=== PATIENT | male | born 1980 | race Caucasian/White ===

== ENCOUNTER → 2022-04-29 12:04 | Outpatient (CLI) | payer OTHER, SELFPAY ==
[2022-04-29 12:22] LABS: Semen Sperm Prescence Post-Vas Absent (ABSENT)
== END ==
PROVIDERS: PCP Family Medicine; Referring Provider Specialist; Visit Provider Specialist
DX: Z98.52 Vasectomy status (principal)
CPT/HCPCS: 89321

== ENCOUNTER 2024-08-28 07:54 | Day surgery (SDC) | payer OTHER, SELFPAY ==
[2024-08-28 08:10] VITALS: BP 105/69; PULSE 77; RESP 15; TEMP 36.4; O2SAT 97
[2024-08-28] MEDS: LACTATED RINGERS 1,000 ML 42 ML IV (08:20)
--- NOTE | 2024-08-28 08:59 | P.HP_ITS ---
History of Present Illness History of Present Illness Date Patient Seen: 08/28/24 Chief complaint: SDC Narrative: Family history of colon cancer in an uncle and colon polyps in father and another uncle need for 1st colorectal cancer screening PENDING SALE TO [facility] Medical History (Updated 11/06/23 @ 16:36 by Reggie Gonzalez MD) Encounter for preventative adult health care examination Family history of colon cancer Surgical History Hx of circumcision Family History Father Cancer Social History marital status: number of children: 3 Smoking Status: Never smoker alcohol intake: current caffeine: Yes Type(s) of exercise: independent ambulation and regular exercise duration: 45-60 minutes/day Meds Home Medications and Allergies Home Medications ?Medication ?Instructions ?Recorded ?Confirmed ?Type epinephrine 0.3 mg/0.3 mL 0.3 mg IM ONCE 09/14/2011/20 History injection, auto-injector epinephrine 0.3 mg/0.3 mL 0.3 mg (0.3 mL) IM Q5-15M VT N 09/15/20 11/06/23 Rx injection, auto-injector (EpiPen hypersensitivity reac tion #2 ea 2-Samir) Allergies Allergy/AdvReac Type Severity Reaction Status Date / Time bee venom protein (honey bee) Allergy Intermediate HIVES Verified 08/28/24 08:09 Exam Vital Signs (past 8 hours): - 08/28/24 08:10 Temperature 97.5 F L Pulse Rate 77 Respiratory Rate 15 Blood Pressure 105/69 Pulse Oximetry 97 Oxygen Delivery Method Room Air Oxygen Delivery Method Room Air Narrative Exam Narrative: Oropharynx free of lesions Assessment & Plan Assessment & Plan narrative: Family history of colon cancer and polyps need for colorectal cancer screening. Risks, benefits, alternatives have been explained. Time-Based Coding :: [TOTAL MINUTES] spent with patient and on the chart (including review of chart, obtaining history, exam, reviewing outside data, placing orders, documenting exam and treatment plan, and counseling patient) on [DATE]. PROFEE R Developer Document charge(s): No
--- NOTE | 2024-08-28 09:00 | PM.OP.COLON ---
Operative Date/Time/Diagnoses Date of procedure: 08/28/24 Time of procedure: 09:19 Pre-op diagnosis: See indication and findings Post-op diagnosis: same Procedure & Clinicians Study performed: Colonoscopy Same procedure(s) as scheduled: Yes Surgeon: Jack Daley Anesthesia Type: Other Procedure Notes Procedure in detail: After informed consent was obtained the patient was placed in left lateral decubitus position. The video colonoscope was introduced the rectum slowly advanced cecum. Preparation was good. On slow withdrawal mucosa was carefully examined. The scope was removed. The patient tolerated procedure well. Blood loss none Complications none Sedation mac Findings 1. Normal colonoscopy to cecum Patient should follow-up colonoscopy in 5 years
[2024-08-28 09:23] VITALS: BP 93/53; PULSE 63; RESP 17; TEMP 36.2; O2SAT 99
[2024-08-28 09:28] VITALS: BP 97/69; PULSE 60; RESP 20; O2SAT 100
[2024-08-28 09:36] VITALS: BP 95/68; PULSE 62; RESP 17; TEMP 36.4; O2SAT 98
== END 2024-08-28 09:42 | disposition home or self-care (01) ==
PROVIDERS: PCP Family Medicine; Referring Provider Internal Medicine Gastroenterology; Visit Provider Internal Medicine Gastroenterology
PROC: 0DJD8ZZ Inspection of Lower Intestinal Tract, Via Natural or Artificial Opening Endoscopic (ICD-10-PCS; CPT 45378; principal; 2024-08-28 09:00)
DX: Z12.11 Encounter for screening for malignant neoplasm of colon (principal); Z80.0 Family history of malignant neoplasm of digestive organs; Z83.719 Family history of colon polyps, unspecified
CPT/HCPCS: G0105; J2704